=== PATIENT | male | born 1990 | race African-American/Black ===

== ENCOUNTER 2017-03-06 02:47 | Emergency (ER) | payer OTHER ==
[2017-03-06] MEDS ORDERED: oxyCODONE/Acetamin 5/325 MG* TAB PO ONE (07:33)
[2017-03-06 07:46] VITALS: BP 149/86
--- NOTE | 2017-03-06 07:51 | ED ---
Master Velasquez Benjamin, scribed for Oz Alonso MD on 03/06/17 at 0738 . Throat Pain/Nasal Congestion - HPI Summary HPI Summary: 26yo left upper and lower dental pain. Pain started 2 weeks ago on his left upper rear molar tooth, but his left lower rear molar tooth is also starting to hurt. Pain was initially intermittent, but yesterday, pt had pain all day long. Pt denies any foul breath odor or drainage. Pt has been taking lots of OTC Aleve and Tylenol for pain. - History of Current Complaint Chief Complaint: EDDentalPain Time Seen by Provider: 03/06/17 07:26 Hx Obtained From: Patient Onset/Duration: Lasting Weeks, Still Present, Worse Since - yesterday Severity: Moderate Associated Signs And Symptoms: Positive: Negative Cough: None - Allergies/Home Medications Allergies/Adverse Reactions: Allergies Allergy/AdvReac Type Severity Reaction Status Date / Time No Known Allergies Allergy Verified 03/06/17 02:52 PMH/Surg Hx/FS Hx/Imm Hx Respiratory History: Reports: Hx Asthma Infectious Disease History: No Infectious Disease History: Denies: History Other Infectious Disease, Traveled Outside the [place] in Last 30 Days - Family History Known Family History: Positive: None Negative: Renal Disease - Remote hx of kidney stone in grandfather. No fhx in immediate family - Social History Occupation: Employed Full-time Lives: Alone Alcohol Use: None Hx Substance Use: No Substance Use Type: Reports: None Hx Tobacco Use: Yes Smoking Status (MU): Heavy Every Day Tobacco Smoker Amount Used/How Often: 1 PPD Review of Systems Constitutional: Negative Eyes: Negative Positive: Dental Pain - left upper and lower pain. Cardiovascular: Negative Respiratory: Negative Gastrointestinal: Negative Genitourinary: Negative Musculoskeletal: Negative Skin: Negative Neurological: Negative Psychological: Normal All Other Systems Reviewed And Are Negative: Yes Physical Exam Triage Information Reviewed: Yes Vital Signs On Initial Exam: Initial Vitals Temp Pulse Resp BP Pulse Ox 97.6 F 86 16 161/98 97 03/06/17 02:49 03/06/17 02:49 03/06/17 02:49 03/06/17 02:49 03/06/17 02:49 Vital Signs Reviewed: Yes Appearance: Positive: Well-Appearing, Well-Nourished, Pain Distress - mild Skin: Positive: Warm, Skin Color Reflects Adequate Perfusion, Dry Head/Face: Positive: Normal Head/Face Inspection Eyes: Positive: Normal ENT: Positive: Normal ENT inspection Dental: Positive: Percussion Tenderness @ - Left Upper and Lower Rear molar tender to percussion, Gross Decay/Caries @ - Left Upper and Lower Rear molar decay Neck: Positive: Supple, Nontender Respiratory/Lung Sounds: Positive: Clear to Auscultation, Breath Sounds Present Cardiovascular: Positive: RRR, Pulses are Symmetrical in both Upper and Lower Extremities Abdomen Description: Positive: Nontender, Soft Bowel Sounds: Positive: Present Musculoskeletal: Positive: Strength/ROM Intact Neurological: Positive: Sensory/Motor Intact, Alert, Oriented to Person Place, Time Psychiatric: Positive: Affect/Mood Appropriate Diagnostics - Vital Signs Vital Signs Temp Pulse Resp BP Pulse Ox 03/06/17 02:53 97.6 F 86 16 161/98 97 03/06/17 02:49 97.6 F 86 16 161/98 97 - Laboratory Lab Statement: Any lab studies that have been ordered have been reviewed, and results considered in the medical decision making process. EENT Course/Dx - Course Course Of Treatment: rx percocet/pen vk - Diagnoses Provider Diagnoses: Pain, dental Discharge - Discharge Plan Condition: Stable Disposition: HOME Prescriptions: Penicillin VK 500 MG TAB(NF) [Penicillin VK 500 mg Tab] 500 mg PO QID #40 tab oxyCODONE/Acetamin 5/325 MG* [Percocet 5/325 TAB*] 1 tab PO Q4H PRN #30 tab MDD 6 PRN Reason: Pain Patient Education Materials: Toothache (ED) Referrals: [facility] PHYSICIAN REFERRAL [Outside] No Primary Care Phys,NOPCP [Primary Care Provider] - Additional Instructions: FOLLOW UP WITH YOUR DENTIST. RETURN TO THE EMERGENCY DEPARTMENT FOR ANY WORSENING OF YOUR CONDITION OR QUESTIONS OR CONCERNS. The documentation as recorded by the Master alberts Benjamin accurately reflects the service I personally performed and the decisions made by me, Oz Alonso MD.
== END 2017-03-06 07:45 | disposition home or self-care (01) ==
LOC: ED 02:47
DX: K08.89 Other specified disorders of teeth and supporting structures (principal)
CPT/HCPCS: 99282; A9270-GY

== ENCOUNTER 2017-03-12 02:57 | Emergency (ER) | payer OTHER ==
[2017-03-12] MEDS ORDERED: oxyCODONE/Acetamin 5/325 MG* TAB PO ONE (03:13)
[2017-03-12 03:40] VITALS: BP 159/90
--- NOTE | 2017-03-12 04:51 | ED ---
Alejandra Velasquez Rebecca, scribed for Ismael Estrella on 03/12/17 at 0316 . Complex/Multi-Sys Presentation - HPI Summary HPI Summary: Pt is a 26 y/o M who presents to ED c/o upper dental pain for 2 weeks. Pain is currently moderate, ranked 5/10. Sx aggravated and alleviated by nothing. Pt was [place] [facility] [place] similar sx on 03/06 (6 days ago) after which he was given Rx for Penicillin and Percocet. Pt reports that he has no pain medication left and has an appointment scheduled for Saturday (tomorrow). Confirms he is taking the Abx as directed. - History Of Current Complaint Chief Complaint: EDDentalPain Time Seen by Provider: 03/12/17 03:02 Hx Obtained From: Patient Onset/Duration: Lasting Weeks - 2 weeks, Still Present Severity Currently: Moderate - 5/10 Location: Pain At: - Dental pain Aggravating Factor(s): Nothing Alleviating Factor(s): Nothing - Allergies/Home Medications Allergies/Adverse Reactions: Allergies Allergy/AdvReac Type Severity Reaction Status Date / Time No Known Allergies Allergy Verified 03/06/17 02:52 PMH/Surg Hx/FS Hx/Imm Hx Respiratory History: Reports: Hx Asthma GI History: Reports: Hx Diverticulosis History: Reports: Hx Kidney Stones Infectious Disease History: No Infectious Disease History: Denies: History Other Infectious Disease, Traveled Outside the [place] in Last 30 Days - Family History Known Family History: Negative: Renal Disease - Remote hx of kidney stone in grandfather. No fhx in immediate family - Social History Alcohol Use: None Hx Substance Use: No Substance Use Type: Reports: Marijuana Substance Use Comment - Amount & Last Used: today Hx Tobacco Use: Yes Smoking Status (MU): Heavy Every Day Tobacco Smoker Amount Used/How Often: 1 PPD Review of Systems Negative: Fever Positive: Dental Pain All Other Systems Reviewed And Are Negative: Yes Physical Exam - Summary Physical Exam Summary: Appearance: Well appearing, no pain distress Skin: warm, dry, reflects adequate perfusion Head/face: normal Eyes: EOMI, NEHEMIAH ENT: Tenderness over the 8 and 9 tooth area Neck: supple, nontender Respiratory: CTA, breath sounds present Cardiovascular: RRR, pulses symmetrical Abdomen: nontender, soft Bowel: present Musculoskeletal: normal, strength/ROM intact Neuro: normal, sensory motor intact, A&Ox3 Triage Information Reviewed: Yes Vital Signs On Initial Exam: Initial Vitals Temp Pulse Resp BP Pulse Ox 98.3 F 79 16 162/111 97 03/12/17 03:05 03/12/17 03:05 03/12/17 03:05 03/12/17 03:05 03/12/17 03:05 Vital Signs Reviewed: Yes - Katerina Coma Scale Coma Scale Total: 15 Diagnostics - Vital Signs Vital Signs Temp Pulse Resp BP Pulse Ox 03/12/17 03:05 98.3 F 79 16 162/111 97 - Laboratory Lab Statement: Any lab studies that have been ordered have been reviewed, and results considered in the medical decision making process. Complex Multi-Symp Course/Dx Assessment/Plan: Pt is a 26 y/o M who presents to ED c/o upper dental pain for 2 weeks. Pain is currently moderate, ranked 5/10. Sx aggravated and alleviated by nothing. Pt was evaluated [place] [facility] [place] similar sx on 03/06 (6 days ago) after which he was given Rx for Penicillin and Percocet. Pt reports that he has no pain medication left and has an appointment scheduled for Saturday (tomorrow ). Confirms he is taking the Abx as directed. In the ED course, pt received Percocet. He will be D/C to home with Dx of dental pain and Rx for Percocet and advised to f/u with his dentist as scheduled. He understands and agrees. Elevated BP noted and advised to f/u. - Diagnoses Provider Diagnoses: Pain, dental Discharge - Discharge Plan Condition: Stable Disposition: HOME Prescriptions: oxyCODONE/Acetamin 5/325 MG* [Percocet 5/325 TAB*] 1 tab PO Q8H PRN #8 tab MDD 4 PRN Reason: Pain Patient Education Materials: Toothache (ED) Referrals: No Primary Care Phys,NOPCP [Primary Care Provider] - Additional Instructions: Follow up with your dentist as scheduled. The documentation as recorded by the Alejandra alberts Rebecca accurately reflects the service I personally performed and the decisions made by , Ismael Estrella.
== END 2017-03-12 03:38 | disposition home or self-care (01) ==
LOC: ED 02:57
DX: K08.89 Other specified disorders of teeth and supporting structures (principal); F17.210 Nicotine dependence, cigarettes, uncomplicated; J45.909 Unspecified asthma, uncomplicated
CPT/HCPCS: 99282; A9270-GY

== ENCOUNTER 2017-03-25 19:37 | Emergency (ER) | payer OTHER ==
[2017-03-25 19:47] VITALS: BP 140/96
--- NOTE | 2017-03-25 19:59 | UC ---
UC Dental HPI - HPI Summary HPI Summary: 26 YEAR OLD MALE PRESENTS WITH COMPLAINS OF LEFT UPPER AND LOWER MOLAR ABSCESS. - History of Current Complaint Chief Complaint: UCDentalProblem Stated Complaint: TOOTH ACHE Time Seen by Provider: 03/25/17 19:54 Hx Obtained From: Patient Onset/Duration: Sudden Onset Severity: Moderate Pain Scale Used: 0-10 Numeric - 5 Alleviating: OTC Meds - Allergies/Home Medications Allergies/Adverse Reactions: Allergies Allergy/AdvReac Type Severity Reaction Status Date / Time No Known Allergies Allergy Verified 03/06/17 02:52 Home Medications: Home Medications Acetaminophen TAB* [Tylenol TAB*] 1,000 mg PO ONCE 03/25/17 [History Confirmed 03/25/17] PMH/Surg Hx/FS Hx/Imm Hx Previously Healthy: Yes - Surgical History Surgical History: None - Family History Known Family History: Positive: None Negative: Renal Disease - Remote hx of kidney stone in grandfather. No fhx in immediate family - Social History Alcohol Use: Occasionally Substance Use Type: Marijuana Substance Use Comment - Amount & Last Used: today Smoking Status (MU): Heavy Every Day Tobacco Smoker Amount Used/How Often: 1 PPD Household Exposure Type: Cigarettes Review of Systems Constitutional: Negative Skin: Negative Eyes: Negative ENT: Dental Pain Respiratory: Negative Cardiovascular: Negative Gastrointestinal: Negative Genitourinary: Negative Motor: Negative Neurovascular: Negative Musculoskeletal: Negative Neurological: Negative Psychological: Negative All Other Systems Reviewed And Are Negative: Yes Physical Exam Triage Information Reviewed: Yes Vital Signs: Initial Vital Signs Temp 37.2 C 03/25/17 19:44 Pulse 97 03/25/17 19:44 Resp 12 03/25/17 19:44 BP 140/96 03/25/17 19:44 Pulse Ox 100 03/25/17 19:44 Vital Signs Reviewed: Yes Eye Exam: Normal ENT Exam: Normal Dental: Positive: Abscess @ Neck exam: Normal Neck: Positive: 1 Respiratory Exam: Normal Cardiovascular Exam: Normal Abdominal Exam: Normal Musculoskeletal Exam: Normal Neurological Exam: Normal Psychological Exam: Normal Skin Exam: Normal Dental Complaint Course/Dx - Differential Dx/Diagnosis Provider Diagnoses: DENTAL ABSCESS Discharge - Discharge Plan Condition: Stable Disposition: HOME Prescriptions: Amoxicillin/Clavulanate TAB* [Augmentin TAB 875*] 875 mg PO BID #20 tab Chlorhexidine MW 0.12% 473ML* [Peridex Mouth Wash 0.12%*] 15 ml MT TID PC #1 btl Ibuprofen TAB* [Motrin TAB* 800 MG] 800 mg PO Q8H PRN #30 tab PRN Reason: Pain Patient Education Materials: Dental Abscess (ED) Forms: *Work Release Referrals: No Primary Care Phys,NOPCP [Primary Care Provider] -
[2017-03-25] MEDS ORDERED: Ibuprofen TAB* 200 MG PO ONE (20:00)
[2017-03-25] MEDS ORDERED: Amoxicillin/Clavulanate TAB* 875 MG PO ONE (20:00)
[2017-03-25] MEDS ORDERED: Lidocaine 2% VISCOUS* 15 ML UDC PO ONE (20:00)
== END 2017-03-25 20:27 | disposition home or self-care (01) ==
LOC: UCEAST 19:37
DX: K04.7 Periapical abscess without sinus (principal)
CPT/HCPCS: 99212; A9270-GY; G0463

== ENCOUNTER → 2017-04-11 05:39 | Emergency (ER) | payer OTHER ==
[~2017-04-11 05:39] MED LIST: Amoxicillin PO (*) 500 MG CAP PO ONE; Lidocaine 1% INJ* 10 MG/ML 30 ML SDV ONE; oxyCODONE/Acetamin 5/325 MG* TAB PO ONE
[2017-04-11 05:45] VITALS: BP 161/93
--- NOTE | 2017-04-11 06:32 | ED ---
Tara Velasquez Alfonso, scribed for Kailey Roy MD on 04/11/17 at 0612 . Complex/Multi-Sys Presentation - HPI Summary HPI Summary: This patient is a 26 year old M [facility] [place] girlfriend with a chief complaint of left sided dental pain worse since a few hours ago. He states he had two teeth removed last week. The patient rates the pain 10/10 in severity. Symptoms aggravated by finishing my painkillers." Symptoms alleviated by nothing. Tobacco abuse disorder. - History Of Current Complaint Chief Complaint: EDDentalPain Time Seen by Provider: 04/11/17 05:45 Hx Obtained From: Patient Onset/Duration: Sudden Onset, Worse Since - hours Timing: Constant Severity Currently: Severe Aggravating Factor(s): by finishing my painkillers." Alleviating Factor(s): nothing - Allergies/Home Medications Allergies/Adverse Reactions: Allergies Allergy/AdvReac Type Severity Reaction Status Date / Time No Known Allergies Allergy Verified 04/11/17 05:45 PMH/Surg Hx/FS Hx/Imm Hx Respiratory History: Reports: Hx Asthma GI History: Reports: Hx Diverticulosis History: Reports: Hx Kidney Stones Infectious Disease History: No Infectious Disease History: Denies: History Other Infectious Disease, Traveled Outside the [place] in Last 30 Days - Family History Known Family History: Negative: Diabetes, Renal Disease - Remote hx of kidney stone in grandfather. No fhx in immediate family - Social History Alcohol Use: Occasionally Hx Substance Use: No Substance Use Type: Reports: Marijuana Substance Use Comment - Amount & Last Used: today Hx Tobacco Use: Yes Smoking Status (MU): Heavy Every Day Tobacco Smoker Amount Used/How Often: 1 PPD Review of Systems Negative: Fever Positive: Dental Pain All Other Systems Reviewed And Are Negative: Yes Physical Exam - Summary Physical Exam Summary: General: Well appearing, no pain distress Skin: Warm, Skin Color Reflects Adequate Perfusion, Dry Eyes: EOMI, NEHEMIAH ENT: Pharynx normal, TMs normal Mouth: No trismus. Left upper and left lower molar removed. No buccal swelling. No facial swelling. Neck: Supple, nontender Respiratory: CTA, breath sounds present, no rhonchi, no wheezes, no rales Cardiovascular: RRR, no murmur, no rub, no gallop Abdomen: Soft, nontender, Non-distended, no guarding, no rebound Bowel: Present Musculoskeletal: LEN, No edema Neuro: Sensory/motor intact, A&Ox3, CN intact 2-12 Psych: Affect/mood appropriate Triage Information Reviewed: Yes Vital Signs On Initial Exam: Initial Vitals Temp Pulse Resp BP Pulse Ox 97.8 F 91 18 161/93 99 04/11/17 05:43 04/11/17 05:43 04/11/17 05:43 04/11/17 05:43 04/11/17 05:43 Vital Signs Reviewed: Yes Procedures - Procedure Summary Procedure Summary: 3 cc's of 1% lidocaine injected into buccal mucosa surrounding left upper and left lower molar sockets with great relief of pts pain Diagnostics - Vital Signs Vital Signs Temp Pulse Resp BP Pulse Ox 04/11/17 05:43 97.8 F 91 18 161/93 99 - Laboratory Lab Statement: Any lab studies that have been ordered have been reviewed, and results considered in the medical decision making process. Complex Multi-Symp Course/Dx - Diagnoses Provider Diagnoses: Pain, dental Discharge - Discharge Plan Condition: Stable Disposition: HOME Prescriptions: Amoxicillin PO (*) [Amoxicillin 500 MG CAP*] 500 mg PO Q12H #14 cap oxyCODONE/Acetamin 5/325 MG* [Percocet 5/325 TAB*] 2 tab PO Q4H PRN #18 tab MDD 6 PRN Reason: Pain Patient Education Materials: Toothache (ED) Referrals: [facility] [place] [facility]IAN REFERRAL [Outside] - 3 Days Additional Instructions: RETURN TO THE EMERGENCY DEPARTMENT FOR CHANGING OR WORSENING SYMPTOMS. The documentation as recorded by the Tara alberts Alfonso accurately reflects the service I personally performed and the decisions made by , Kailey Roy MD.
== END | disposition home or self-care (01) ==
LOC: ED 05:39
DX: K08.89 Other specified disorders of teeth and supporting structures (principal); F17.210 Nicotine dependence, cigarettes, uncomplicated
CPT/HCPCS: 99282; A9270-GY; J2001